=== PATIENT | female | born 1995 | race Caucasian/White ===

== ENCOUNTER 2023-05-30 02:29 | Observation (INO) ==
[2023-05-30] MEDS ORDERED: SODIUM CHLORIDE 0.9% 1,000 ML IV ONE (02:48)
[2023-05-30] MEDS ORDERED: ONDANSETRON INJ 2 MG/ML 2 ML VIAL IV STA (02:48)
[2023-05-30] MEDS ORDERED: SODIUM CHLORIDE 0.9% 500 ML IV STA (02:48)
[2023-05-30] MEDS ORDERED: fentaNYL citrate PF 100 MCG/2 ML VIAL IV STA (02:48)
[2023-05-30 03:00] LABS: POC Urine Bilirubin Negative (Negative); POC Urine Blood Negative (Negative); POC Urine Glucose Normal (Normal); POC Urine Ketones Negative (Negative); POC Urine Leukocytes Negative (Negative); POC Urine Nitrite Negative (Negative); POC Urine Protein 3+ (Negative); POC Urine Urobilinogen Normal (Normal); POC Urine pH 5 (4.5-7.5)
[2023-05-30 03:10] LABS: Appearance Urine Cloudy (Clear); Bacteria Urine Automated Negative (Negative); Bilirubin Urine Negative (Negative); Blood Urine Negative (Negative); Color Urine Orange; Epithelial Cell Urine Auto >30 /lpf (0-5); Glucose Urine UA Negative (Negative); Ketones Urine Negative (Negative); Leukocyte Esterase Urine 1+ (Negative); Nitrite Urine Negative (Negative); Protein Urine Negative (Negative); RBC Urine Automated 0-4 /hpf (0-4); Specific Gravity Urine 1.019 (1.000-1.030); Urobilinogen Urine Negative (Negative); pH Urine 7.5 (4.5-7.5)
--- NOTE | 2023-05-30 03:10 | Emergency Department Note ---
Impression & Plan Left ureteral calculus, Acute left flank pain, Hydronephrosis, left ED Provider Note HISTORY OF PRESENT ILLNESS: Patient is a 28-year-old female presenting with left flank pain. Patient reports pain started at 1800 on 05/29/2023. She reports she tried taking ibuprofen with little relief in her symptoms. She states that she has had kidney stones in the past. She reports that she has required surgical interventions for her kidney stones, with her last surgery being in 17- 18. She denies any dysuria or hematuria. Locates the pain in the left flank and states it radiates around into her left abdomen. Denies any abdominal surgical history. Denies any fevers. Reports nausea but no vomiting. ROS: as above PHYSICAL EXAM: Constitutional: Patient appears in no acute distress. HENT: Head: Normocephalic and atraumatic. Eyes: EOMI, PERRL Mouth/Throat: Mucous membranes moist. Neck: Trachea midline. Neck supple. Cardiovascular: RRR, No murmurs, rubs or gallops. Intact distal pulses. Pulmonary/Chest: No respiratory distress. Breath sounds clear and equal bilaterally. No wheezes or rales. Abdominal: Abdomen soft, no tenderness, rebound or guarding. Back: No midline spinal tenderness, no paraspinal tenderness, no CVA tenderness. Musculoskeletal: No edema, tenderness or deformity noted. Skin: Warm and dry. No rash, erythema, pallor or cyanosis Psychiatric: Appropriate mood and affect for situation. Neurological: Alert and keenly responsive. CN II-XII grossly intact, moving all extremities equally and fully. MDM: - Vitals signs showed hypertension and tachycardia. - History obtained via patient. Patient presents with left flank pain. Patient reports symptoms started at 1800 yesterday. She reports this feels like her prior kidney stones. She has required surgical intervention for kidney stones in the past. Denies any fevers. Denies any dysuria or hematuria. Reports taking Tylenol and Motrin with little relief in symptoms. Currently feels nauseous and having significant pain - Chronic conditions affecting care: recurrent kidney stones - Differential diagnoses include, but are not limited to: UTI; pyelonephritis; ureteral stone; colitis - Order placed for continuous cardiac monitoring. At this time, monitor showed rate of 91 bpm with normal sinus rhythm, per my interpretation. - External medical records reviewed. - Laboratory workup interpreted by myself showed leukocytosis (WBC 13.29) with left shift; hypokalemia (K 3.4); stable creatinine - UA negative for bacteria, but noted to have positive leukocyte Estrace and 10- 30 white blood cells. - CT abdomen/pelvis wo contrast showed an 8 mm proximal left ureteral stone with mild left hydronephrosis. - Patient given 1L NS, 50 mcg IV fentanyl and 4 mg IV zofran for symptomatic management on arrival to ER. On reassessment, the patient is still complaining of worsening pain. She was given an additional 500 cc NS and 30 mg IV toradol. - Given 2g IV rocephin. - Given patient's symptoms and continued pain, will admit for urology consultation and pain management. - Discussion was had with critical care transport nurse about patient's case and need for admission - Hospitalist consulted for admission - Patient admitted to [facility] for further evaluation and management. ASSESSMENT AND PLAN: Diagnosis: left flank pain; ureteral stone; left hydronephrosis Plan: admit Past Med/Surg History Social History Smoking Status: Never smoker Preferred Language: Urdu Feels Safe at Home: Yes Allergies Allergies Allergy/AdvReac Type Severity Reaction Status Date / Time No Known Allergies Allergy Verified 05/30/23 02:47 Home Meds Home Medications Medication Instructions Recorded Confirmed escitalopram oxalate 10 mg tablet 0 mg PO DAILY 05/30/23 05/30/23 (Lexapro) hydrochlorothiazide 12.5 mg tablet 12.5 mg PO DAILY 05/30/23 05/30/23 levonorgestrel 0.15 mg-ethinyl 1 tab PO DAILY 05/30/23 05/30/23 estradiol 30 mcg tablets,3 mos pack(91) omeprazole 20 mg capsule,delayed 20 mg PO DAILY 05/30/23 05/30/23 release potassium citrate 15 mEq (1,620 15 meq PO BID 05/30/23 05/30/23 mg) tablet,extended release Results & Data (ED) Vital Signs Vital Signs - 24 hr 05/30/23 02:34 05/30/23 03:43 Temperature 36.6 C 36.6 C Temperature Source Temporal Artery Scan Temporal Artery Scan Pulse Rate 101 H Pulse Rate [Right Apical] 91 H Respiratory Rate 18 18 Respiratory Effort / Characteristics Non-Labored Spontaneous Non-Labored Spontaneous Respiratory Depth Normal Normal Blood Pressure 142/83 H Blood Pressure [Right Arm] 136/84 Blood Pressure Mean 102 Blood Pressure Mean [Right Arm] 101 Pulse Oximetry 99 99 Oxygen Delivery Method Room Air Room Air Sepsis New/Unexplained Change in Mental Status N/A Sepsis Action Taken by Nursing No Action Required Laboratory Data 05/30/23 02:40 05/30/23 02:40 Lab Results 05/30/23 05/30/23 Range/Units 02:40 02:43 WBC 13.29 H (4.8-10.8) K/ul RBC 5.10 (4.20-5.40) M/uL Hgb 15.4 (12.0-16.0) g/dl Hct 44.6 (37.0-47.0) % MCV 87.5 (80.0-100.0) fL MCH 30.2 (25.0-34.0) pg MCHC 34.5 (32.0-36.0) g/dL RDW Std Deviation 37.8 (36.4-46.3) fL RDW Coeff of Gianni 11.7 (11.5-14.5) % Plt Count 251 (130-400) K/uL MPV 10.8 (9.4-12.4) fL Immature Gran % (Auto) 0.5 % Neut % (Auto) 74.9 % Lymph % (Auto) 15.0 % [place] % (Auto) 6.8 % Eos % (Auto) 2.4 % Baso % (Auto) 0.4 % Neut # (Auto) 9.96 H (1.40-6.50) K/uL Lymph # (Auto) 1.99 (1.20-3.40) K/uL [place] # (Auto) 0.91 H (0.11-0.59) K/uL Eos # (Auto) 0.32 (0.00-0.50) K/uL Baso # (Auto) 0.05 (0.00-0.20) K/uL Immature Gran # (Auto) 0.06 (0.01-0.20) K/uL Sodium 134 L (136-145) mmol/L Potassium 3.4 L (3.5-5.1) mmol/L Chloride 100 (98-107) mmol/L Carbon Dioxide 25 (21-32) mmol/L Anion Gap 9 (3-11) BUN 13 (6-23) mg/dl Creatinine 0.95 (0.6-1.2) mg/dl Est Cr Clr Drug Dosing 89.1 ml/min Est GFR ( Amer) 94.5 ml/min Est GFR (Non-Af Amer) 81.5 ml/min BUN/Creatinine Ratio 13.7 (10-20) Glucose 106 H (70-99(Fasting)) mg/dl Calcium 9.3 (8.6-10.3) mg/dl Total Bilirubin 0.4 (0.2-1.0) mg/dl AST 23 (13-39) U/L ALT 41 (7-52) U/L Alkaline Phosphatase 76 (34-104) U/L Total Protein 7.5 (6.0-8.3) gm/dl Albumin 4.4 (3.4-5.0) gm/dl Globulin 3.1 (2.5-4.0) gm/dl Albumin/Globulin Ratio 1.4 (0.9-2) Urine Color [place] Urine Appearance Cloudy A (Clear) Urine pH 7.5 (4.5-7.5) POC Urine pH 5 (4.5-7.5) Ur Specific [place] 1.019 (1.000-1.030) Urine Protein Negative (Negative) POC Urine Protein 3+ H (Negative) Urine Glucose (UA) Negative (Negative) POC Ur Glucose (UA) Normal (Normal) Urine Ketones Negative (Negative) POC Urine Ketones Negative (Negative) Urine Blood Negative (Negative) POC Urine Blood Negative (Negative) Urine Nitrite Negative (Negative) POC Urine Nitrite Negative (Negative) Urine Bilirubin Negative (Negative) POC Urine Bilirubin Negative (Negative) Urine Urobilinogen Negative (Negative) POC Urine Urobilinogen Normal (Normal) Ur Leukocyte Esterase 1+ H (Negative) POC U Leukocyte Esteras Negative (Negative) Urine WBC (Auto) 10-30 H (0-5) /hpf Urine RBC (Auto) 0-4 (0-4) /hpf U Hyaline Cast (Auto) 1-5 (0-5) /lpf U Epithel Cells (Auto) >30 H (0-5) /lpf Urine Bacteria (Auto) Negative (Negative) POC Ur Test NEG (NEG) Administered Medications Discontinued Medications Fentanyl Citrate (Fentanyl Citrate Pf 100 Mcg/2 Ml Vial) 50 mcg IV NOW STA Stop: 05/30/23 02:49 Last Admin: 05/30/23 02:59 Dose: 50 mcg Documented By: ANA Sodium Chloride (Nss) 1,000 mls @ 999 mls/hr IV .Q1H1M ONE Stop: 05/30/23 03:48 Last Infusion: 05/30/23 03:41 Dose: Infused Documented By: Admin: 05/30/23 02:59 Dose: 999 mls/hr Documented By: ANA Sodium Chloride (Nss) 500 mls @ 999 mls/hr IV .Q31M STA Stop: 05/30/23 03:18 Last Infusion: 05/30/23 04:18 Dose: Infused Documented By: Admin: 05/30/23 03:41 Dose: 999 mls/hr Documented By: ANA Ketorolac Tromethamine (Ketorolac 30 Mg/Ml Vial) 30 mg IV NOW ONE Stop: 05/30/23 04:03 Last Admin: 05/30/23 04:07 Dose: 30 mg Documented By: ANA Ondansetron HCl (Ondansetron Inj 2 Mg/Ml 2 Ml Vial) 4 mg IV NOW STA Stop: 05/30/23 02:49 Last Admin: 05/30/23 02:58 Dose: 4 mg Documented By: ANA Imaging Data Radiologist's Impression: Abdomen/Pelvis CT 05/30/23 02:49 Exam(s): CT ABDOMEN + PELVIS Without Contrast EXAM: CT Abdomen and Pelvis Without Intravenous Contrast CLINICAL HISTORY: Reason for exam: left flank pain. TECHNIQUE: Axial computed tomography images of the abdomen and pelvis without intravenous contrast. CTDI is 19.75 mGy and DLP is 941.52 mGy-cm. Automated exposure control was utilized for the study. A dose lowering technique was utilized adhering to the principles of ALARA. COMPARISON: No relevant prior studies available. FINDINGS: Lung bases: Unremarkable. No mass. No consolidation. ABDOMEN: Liver: Unremarkable. Gallbladder and bile ducts: Unremarkable. No calcified stones. No ductal dilation. Pancreas: Unremarkable. No ductal dilation. Spleen: Unremarkable. No splenomegaly. Adrenals: Unremarkable. No mass. Kidneys and ureters: Mild left hydronephrosis secondary to a 0.8 cm obstructing proximal left ureteral calculus. Multiple nonobstructing bilateral intrarenal calculi. 4 x 4.2 cm right upper pole renal hypodensity likely representing a cyst. Stomach and bowel: Unremarkable. No obstruction. No mucosal thickening. PELVIS: Appendix: No findings to suggest acute appendicitis. Bladder: Unremarkable. No stones. Reproductive: Unremarkable as visualized. ABDOMEN and PELVIS: Intraperitoneal space: Unremarkable. No free air. No significant fluid collection. Bones/joints: No acute fracture. No dislocation. Soft tissues: Unremarkable. Vasculature: Unremarkable. No abdominal aortic aneurysm. Lymph nodes: Unremarkable. No enlarged lymph nodes. IMPRESSION: Mild left hydronephrosis secondary to a 0.8 cm obstructing proximal left ureteral calculus. Electronically signed by: Mayur Mclean MD 05/30/23 04:25 AM Discharge Plan Visit Data Chief Complaint: Kidney Stone Stated Complaint: KIDNEY STONE ED Provider: Kelly Alvarado Discharge Problem: Left ureteral calculus, Acute left flank pain, Hydronephrosis, left Forms Stand Alone [facility]: [facility] Prescriptions Prescriptions: No Action omeprazole [Prilosec] 20 mg Capsule,Delayed Release(Dr/Ec) 20 mg PO DAILY escitalopram oxalate [Lexapro] 10 mg Tablet 0 mg PO DAILY Rx Instructions: PT UNSURE OF STRENGTH, UNABLE TO VERIFY levonorgestrel-ethinyl estrad [Seasonale (91)] 0.15 mg-30 mcg (91) Tablets,Dose Pack,3 Month 1 tab PO DAILY hydrochlorothiazide 12.5 mg Tablet 12.5 mg PO DAILY potassium citrate 15 mEq Tablet Extended Release 15 meq PO BID Referrals Referrals: PCP,NO [Physician] -
[2023-05-30 03:19] LABS: Basophils # (auto) 0.05 K/uL (0.00-0.20); Basophils % (auto) 0.4 %; Eosinophils # (auto) 0.32 K/uL (0.00-0.50); Eosinophils % (auto) 2.4 %; Hematocrit (blood only) 44.6 % (37.0-47.0); Hemoglobin 15.4 g/dl (12.0-16.0); Immature Granulocytes # (auto) 0.06 K/uL (0.01-0.20); Immature Granulocytes % (auto) 0.5 %; Lymphocytes # (auto) 1.99 K/uL (1.20-3.40); Mean Corpuscular Hemoglobin 30.2 pg (25.0-34.0); Mean Corpuscular Hgb Conc 34.5 g/dL (32.0-36.0); Mean Corpuscular Volume 87.5 fL (80.0-100.0); Mean Platelet Volume 10.8 fL (9.4-12.4); Monocytes # (auto) 0.91 K/uL (0.11-0.59); Monocytes % (auto) 6.8 %; Neutrophils # (auto) 9.96 K/uL (1.40-6.50); Neutrophils % (auto) 74.9 %; Platelet Count 251 K/uL (130-400); RDW Coefficient of Variation 11.7 % (11.5-14.5); RDW Standard Deviation 37.8 fL (36.4-46.3); White Blood Count 13.29 K/ul (4.8-10.8)
[2023-05-30 03:26] LABS: Albumin Globulin Ratio 1.4 (0.9-2); Albumin Level 4.4 gm/dl (3.4-5.0); BUN Creatinine Ratio 13.7 (10-20); Bilirubin,Total 0.4 mg/dl (0.2-1.0); Calcium 9.3 mg/dl (8.6-10.3); Creatinine Clr Calc Pharmacy 89.1 ml/min; Est GFR (African American) 94.5 ml/min; Est GFR (Non-African American) 81.5 ml/min; Globulin 3.1 gm/dl (2.5-4.0); Potassium 3.4 mmol/L (3.5-5.1); Total Protein 7.5 gm/dl (6.0-8.3)
[2023-05-30] MEDS ORDERED: KETOROLAC 30 MG/ML VIAL IV ONE (04:02)
--- NOTE | 2023-05-30 04:26 | CT Scan Report ---
Exam(s): CT ABDOMEN + PELVIS Without Contrast EXAM: CT Abdomen and Pelvis Without Intravenous Contrast CLINICAL HISTORY: Reason for exam: left flank pain. TECHNIQUE: Axial computed tomography images of the abdomen and pelvis without intravenous contrast. CTDI is 19.75 mGy and DLP is 941.52 mGy-cm. Automated exposure control was utilized for the study. A dose lowering technique was utilized adhering to the principles of ALARA. COMPARISON: No relevant prior studies available. FINDINGS: Lung bases: Unremarkable. No mass. No consolidation. ABDOMEN: Liver: Unremarkable. Gallbladder and bile ducts: Unremarkable. No calcified stones. No ductal dilation. Pancreas: Unremarkable. No ductal dilation. Spleen: Unremarkable. No splenomegaly. Adrenals: Unremarkable. No mass. Kidneys and ureters: Mild left hydronephrosis secondary to a 0.8 cm obstructing proximal left ureteral calculus. Multiple nonobstructing bilateral intrarenal calculi. 4 x 4.2 cm right upper pole renal hypodensity likely representing a cyst. Stomach and bowel: Unremarkable. No obstruction. No mucosal thickening. PELVIS: Appendix: No findings to suggest acute appendicitis. Bladder: Unremarkable. No stones. Reproductive: Unremarkable as visualized. ABDOMEN and PELVIS: Intraperitoneal space: Unremarkable. No free air. No significant fluid collection. Bones/joints: No acute fracture. No dislocation. Soft tissues: Unremarkable. Vasculature: Unremarkable. No abdominal aortic aneurysm. Lymph nodes: Unremarkable. No enlarged lymph nodes. IMPRESSION: Mild left hydronephrosis secondary to a 0.8 cm obstructing proximal left ureteral calculus. Electronically signed by: Mayur Mclean MD 05/30/23 04:25 AM
[2023-05-30] MEDS ORDERED: cefTRIAXone SODIUM 2,000 MG/50 ML BAG IV STA (04:27)
--- NOTE | 2023-05-30 05:10 | History & Physical Report ---
Date of Service May 30, 2023 Assessment & Plan (1) Left ureteral calculus: Plan: Patient comfortable at present. UA without bacteria. -Admit to medical -Consult Urology - assistance appreciated -Keep NPO -Urine strainer -IVF -Pain control and antiemetics History of Present Illness Chief Complaint: left flank pain Primary Care Provider: Haresh Bermudez Kimberley Dahl is a 28yo female with HTN, GERD and recurrent renal stones presenting with left flank pain that began tonight at 18:00. Pain radiating into the groin. Associated nausea and vomiting. Patient was seen in the past by Urology in [place]. She has had 3 urological procedures in the past and has passed several stones on her own as well. Allergies Allergy/AdvReac Type Severity Reaction Status Date / Time No Known Allergies Allergy Verified 05/30/23 02:47 Home Medications Medication Instructions Recorded Confirmed Type escitalopram oxalate 10 mg tablet 0 mg PO DAILY 05/30/23 05/30/23 History (Lexapro) hydrochlorothiazide 12.5 mg tablet 12.5 mg PO DAILY 05/30/23 05/30/23 History levonorgestrel 0.15 mg-ethinyl 1 tab PO DAILY 05/30/23 05/30/23 History estradiol 30 mcg tablets,3 mos pack(91) omeprazole 20 mg capsule,delayed 20 mg PO DAILY 05/30/23 05/30/23 History release potassium citrate 15 mEq (1,620 15 meq PO BID 05/30/23 05/30/23 History mg) tablet,extended release Past Med/Surg History Social History Smoking Status: Never smoker Hx Alcohol Use: No Hx Substance Use: No Preferred Language: Yoruba Communication Ability: Effective Size Marker Required: No Beliefs That Will Affect Care: None Current Living Situation: Significant Other Other Information That Helps Us Care for You: No Feels Safe at Home: Yes Safety Concerns: Feels Safe At This Time Assistive Devices: Glasses Review of Systems Review of Systems: All systems reviewed & are unremarkable except as noted in HPI & below Physical Exam Physical Exam: General: patient resting comfortably, NAD, non-toxic in appearance, AA&O x 4 Skin: warm, dry, intact, no rashes or lesions HEENT: NC/AT, PERRL, EOMI, anicteric sclera, conjunctiva without injection, external ear normal to inspection and nontender, nares patent, moist mucus membranes, dentition intact, no oropharyngeal lesions, neck supple, trachea midline, no LAD, no thyromegaly, no JVD Heart: +S1/S2, regular, no m/r/g Lungs: equal air entry bilaterally, no rales/rhonchi/wheezes Abd: +BS, soft, NT/ND, no masses/organomegaly/ascites, LEFT CVA Tenderness Ext: warm, 2+ pulses in UE/LE bilaterally, no clubbing/cyanosis or edema Neuro: nonfocal, patient AA&O x 4, speech intact, no facial droop, moving all extremities on command with equal strength 5/5 Results & Data Results & Data Vital Signs (Past 12 Hours) Vital Signs Temp Pulse Pulse Resp BP BP Pulse Ox 05/30/23 05:05 05/30/23 05:03 36.8 C 88 15 137/84 98 05/30/23 03:43 36.6 C 91 H 18 136/84 99 05/30/23 02:34 36.6 C 101 H 18 142/83 H 99 O2 Del Method 05/30/23 05:05 Room Air 05/30/23 05:03 Room Air 05/30/23 03:43 Room Air 05/30/23 02:34 Room Air Laboratory Results Laboratory Results WBC 13.29 K/ul (4.8-10.8) H 05/30/23 02:40 RBC 5.10 M/uL (4.20-5.40) 05/30/23 02:40 Hgb 15.4 g/dl (12.0-16.0) 05/30/23 02:40 Hct 44.6 % (37.0-47.0) 05/30/23 02:40 MCV 87.5 fL (80.0-100.0) 05/30/23 02:40 MCH 30.2 pg (25.0-34.0) 05/30/23 02:40 MCHC 34.5 g/dL (32.0-36.0) 05/30/23 02:40 RDW Std Deviation 37.8 fL (36.4-46.3) 05/30/23 02:40 RDW Coeff of Gianni 11.7 % (11.5-14.5) 05/30/23 02:40 Plt Count 251 K/uL (130-400) 05/30/23 02:40 MPV 10.8 fL (9.4-12.4) 05/30/23 02:40 Immature Gran % (Auto) 0.5 % 05/30/23 02:40 Neut % (Auto) 74.9 % 05/30/23 02:40 Lymph % (Auto) 15.0 % 05/30/23 02:40 [place] % (Auto) 6.8 % 05/30/23 02:40 Eos % (Auto) 2.4 % 05/30/23 02:40 Baso % (Auto) 0.4 % 05/30/23 02:40 Neut # (Auto) 9.96 K/uL (1.40-6.50) H 05/30/23 02:40 Lymph # (Auto) 1.99 K/uL (1.20-3.40) 05/30/23 02:40 [place] # (Auto) 0.91 K/uL (0.11-0.59) H 05/30/23 02:40 Eos # (Auto) 0.32 K/uL (0.00-0.50) 05/30/23 02:40 Baso # (Auto) 0.05 K/uL (0.00-0.20) 05/30/23 02:40 Immature Gran # (Auto) 0.06 K/uL (0.01-0.20) 05/30/23 02:40 Sodium 134 mmol/L (136-145) L 05/30/23 02:40 Potassium 3.4 mmol/L (3.5-5.1) L 05/30/23 02:40 Chloride 100 mmol/L (98-107) 05/30/23 02:40 Carbon Dioxide 25 mmol/L (21-32) 05/30/23 02:40 Anion Gap 9 (3-11) 05/30/23 02:40 BUN 13 mg/dl (6-23) 05/30/23 02:40 Creatinine 0.95 mg/dl (0.6-1.2) 05/30/23 02:40 Est Cr Clr Drug Dosing 89.1 ml/min 05/30/23 02:40 Est GFR ( Amer) 94.5 ml/min 05/30/23 02:40 Est GFR (Non-Af Amer) 81.5 ml/min 05/30/23 02:40 BUN/Creatinine Ratio 13.7 (10-20) 05/30/23 02:40 Glucose 106 mg/dl (70-99(Fasting)) H 05/30/23 02:40 Calcium 9.3 mg/dl (8.6-10.3) 05/30/23 02:40 Total Bilirubin 0.4 mg/dl (0.2-1.0) 05/30/23 02:40 AST 23 U/L (13-39) 05/30/23 02:40 ALT 41 U/L (7-52) 05/30/23 02:40 Alkaline Phosphatase 76 U/L (34-104) 05/30/23 02:40 Total Protein 7.5 gm/dl (6.0-8.3) 05/30/23 02:40 Albumin 4.4 gm/dl (3.4-5.0) 05/30/23 02:40 Globulin 3.1 gm/dl (2.5-4.0) 05/30/23 02:40 Albumin/Globulin Ratio 1.4 (0.9-2) 05/30/23 02:40 Urine Color [place] 05/30/23 02:43 Urine Appearance Cloudy (Clear) A 05/30/23 02:43 Urine pH 7.5 (4.5-7.5) 05/30/23 02:43 POC Urine pH 5 (4.5-7.5) 05/30/23 02:43 Ur Specific [place] 1.019 (1.000-1.030) 05/30/23 02:43 Urine Protein Negative (Negative) 05/30/23 02:43 POC Urine Protein 3+ (Negative) H 05/30/23 02:43 Urine Glucose (UA) Negative (Negative) 05/30/23 02:43 POC Ur Glucose (UA) Normal (Normal) 05/30/23 02:43 Urine Ketones Negative (Negative) 05/30/23 02:43 POC Urine Ketones Negative (Negative) 05/30/23 02:43 Urine Blood Negative (Negative) 05/30/23 02:43 POC Urine Blood Negative (Negative) 05/30/23 02:43 Urine Nitrite Negative (Negative) 05/30/23 02:43 POC Urine Nitrite Negative (Negative) 05/30/23 02:43 Urine Bilirubin Negative (Negative) 05/30/23 02:43 POC Urine Bilirubin Negative (Negative) 05/30/23 02:43 Urine Urobilinogen Negative (Negative) 12 02:43 POC Urine Urobilinogen Normal (Normal) 05/30/23 02:43 Ur Leukocyte Esterase 1+ (Negative) H 05/30/23 02:43 POC U Leukocyte Esteras Negative (Negative) 05/30/23 02:43 Urine WBC (Auto) 10-30 /hpf (0-5) H 12 02:43 Urine RBC (Auto) 0-4 /hpf (0-4) 05/30/23 02:43 U Hyaline Cast (Auto) 1-5 /lpf (0-5) 05/30/23 02:43 U Epithel Cells (Auto) >30 /lpf (0-5) H 05/30/23 02:43 Urine Bacteria (Auto) Negative (Negative) 05/30/23 02:43 POC Ur Test NEG (NEG) 05/30/23 02:43 Impressions Abdomen/Pelvis CT 05/30/23 02:49 Exam(s): CT ABDOMEN + PELVIS Without Contrast EXAM: CT Abdomen and Pelvis Without Intravenous Contrast CLINICAL HISTORY: Reason for exam: left flank pain. TECHNIQUE: Axial computed tomography images of the abdomen and pelvis without intravenous contrast. CTDI is 19.75 mGy and DLP is 941.52 mGy-cm. Automated exposure control was utilized for the study. A dose lowering technique was utilized adhering to the principles of ALARA. COMPARISON: No relevant prior studies available. FINDINGS: Lung bases: Unremarkable. No mass. No consolidation. ABDOMEN: Liver: Unremarkable. Gallbladder and bile ducts: Unremarkable. No calcified stones. No ductal dilation. Pancreas: Unremarkable. No ductal dilation. Spleen: Unremarkable. No splenomegaly. Adrenals: Unremarkable. No mass. Kidneys and ureters: Mild left hydronephrosis secondary to a 0.8 cm obstructing proximal left ureteral calculus. Multiple nonobstructing bilateral intrarenal calculi. 4 x 4.2 cm right upper pole renal hypodensity likely representing a cyst. Stomach and bowel: Unremarkable. No obstruction. No mucosal thickening. PELVIS: Appendix: No findings to suggest acute appendicitis. Bladder: Unremarkable. No stones. Reproductive: Unremarkable as visualized. ABDOMEN and PELVIS: Intraperitoneal space: Unremarkable. No free air. No significant fluid collection. Bones/joints: No acute fracture. No dislocation. Soft tissues: Unremarkable. Vasculature: Unremarkable. No abdominal aortic aneurysm. Lymph nodes: Unremarkable. No enlarged lymph nodes. IMPRESSION: Mild left hydronephrosis secondary to a 0.8 cm obstructing proximal left ureteral calculus. Electronically signed by: Mayur Mclean MD 05/30/23 04:25 AM PG Care Time/CCT Total # of Minutes Spent Total Time Spent with Patient: Total time spent is greater than 50% in coordination of care (as documented) at patient's floor/unit and/or counseling patient: Coding Level of Care Code 23335 INT INP/OBS CARE 2/55MIN Diagnoses Left ureteral calculus N20.1
[2023-05-30] MEDS ORDERED: ONDANSETRON INJ 2 MG/ML 2 ML VIAL IV PRN (07:54)
[2023-05-30] MEDS ORDERED: POLYETHYLENE (MIRALAX) 17 GM PACK PO PRN (07:54)
[2023-05-30] MEDS ORDERED: HYDROmorphone INJ 0.5 MG/0.5 ML SYR IV PRN ×2 (07:54)
[2023-05-30] MEDS ORDERED: NALOXONE HCL 0.4 MG/1 ML VIAL/CARP IV PRN (07:54)
[2023-05-30] MEDS ORDERED: POTASSIUM CHLORIDE CRTAB 20 MEQ TABCR PO STA (08:02)
[2023-05-30] MEDS: LACTATED RINGER'S 1,000 ML IV SCH ×2 (08:38→14:20)
[2023-05-30] MEDS ORDERED: hydroCHLOROthiazide 25 MG TAB PO SCH (09:00)
[2023-05-30] MEDS ORDERED: ESCITALOPRAM OXALATE 10 MG TAB PO SCH (09:30)
[2023-05-30] MEDS ORDERED: KETOROLAC 30 MG/ML VIAL IV PRN (09:44)
[2023-05-30] MEDS ORDERED: TAMSULOSIN HCL 0.4 MG CAP PO SCH (09:45)
--- NOTE | 2023-05-30 09:45 | Communication Note ---
Date of Service: May 30, 2023 Admitted this AM by Dr. Swenson, follow-up note 28 y/o hx nephrolithiasis and several past urological procedures, on HCTZ at home. Presented with L flank pain, 0.8 cm stone prox L ureter with mild hydronephrosis -had dose of CTX by ED -IV fluids - increase LR to 200 mL/h -flomax ordered -pain control with IV hydromorphone, ketorolac -dose of oral K given for mild hypokalemia -urology consulted
--- NOTE | 2023-05-30 10:45 | Urology Consultation ---
Date of Consultation May 30, 2023 Assessment & Plan (1) Hydronephrosis, left: (2) Left ureteral calculus: (3) Acute left flank pain: 28 yo F admitted for acute left flank pain secondary to an obstructing left proximal ureteral stone. Patient afebrile, hemodynamically stable Labs reviewedcreatinine 0.95, WBC 13.29, hemoglobin 15.4 Urinalysis was not suggestive of infection, urine culture pending CTAP reviewed and discussedmild left hydronephrosis secondary to an 8 mm obstructing left proximal ureteral stone; bilateral nephrolithiasis Discussed options for stone management including left ureteral stent placement acutely. Discussed need for stone treatment/removal at a later date. Ureteral stents were discussed in detail. Alternatively, we discussed outpatient surgical options including ESWL versus ureteroscopy, laser lithotripsy and stent placement if pain is controlled and she can be discharged to home. She poorly tolerated stent in the past and would like to avoid stent for prolonged period. She prefers to f/u with our service to set up outpatient stone treatment. No surgical intervention planned todayokay to resume diet. Recommend discharge to home with tamsulosin and prn analgesia when medically stable. Will arrange outpatient follow-up with our service to discuss definitive stone management. will sign off. History of Present Illness Attending Physician: Miladis Green MD History of Present Illness This is a 28-year-old female with past medical history of recurrent nephrolithiasis who presented to the emergency department today with left flank pain and nausea. On arrival, she was afebrile and hemodynamically stable. Lab work showed leukocytosis of 13.29, hemoglobin 15.4, creatinine 0.95, sodium 134, potassium 3.4. Urinalysis showed 3+ protein, 1+ leukocyte esterase, 10-30 WBC, >30 epithelial cells, negative for bacteria. Urine negative. CT A/P without contrast showed mild left hydronephrosis secondary to an 8 mm obstructing left proximal ureteral stone; bilateral renal calculi. ED course: IV fluids, fentanyl, Zofran, Toradol, and IV Rocephin. She was admitted to the hospital medicine service. Urology is consulted for left ureteral stone. Patient seen and examined at bedside this morning. She is awake and sitting up in bed, no apparent distress. She is currently comfortable. She reports left f lank pain has improved since arrival, rates pain at 3 out of 10. Denies nausea, vomiting, fever or chills at present. She is voiding without difficulty. Denies dysuria or hematuria. She is currently NPO. She reports prior hx of stones. Previously followed with a urologist in [place]. Does not currently have a urologist. Continues to follow with a licensed practical nurse clinic nurse. On potassiums citrate. Multiple surgical interventions in the past. She has poorly tolerated stent/stent removal in the past. She has also passed stone spontaneously. Allergies Allergy/AdvReac Type Severity Reaction Status Date / Time No Known Allergies Allergy Verified 05/30/23 02:47 Home Medications Medication Instructions Recorded Confirmed Type escitalopram oxalate 10 mg tablet 10 mg PO DAILY 05/30/23 05/30/23 History (Lexapro) hydrochlorothiazide 12.5 mg tablet 12.5 mg PO DAILY 05/30/23 05/30/23 History levonorgestrel 0.15 mg-ethinyl 1 tab PO DAILY 05/30/23 05/30/23 History estradiol 30 mcg tablets,3 mos pack(91) omeprazole 20 mg capsule,delayed 20 mg PO DAILY 05/30/23 05/30/23 History release potassium citrate 15 mEq (1,620 15 meq PO BID 05/30/23 05/30/23 History mg) tablet,extended release Patient History Social History Smoking Status: Never smoker Hx Alcohol Use: No Hx Substance Use: No Preferred Language: Stateless Communication Ability: Effective Track Leader Required: No Beliefs That Will Affect Care: None Current Living Situation: Significant Other Feels Safe at Home: Yes Assistive Devices: Glasses Review of Systems Review of Systems: All systems reviewed & are unremarkable except as noted in HPI & below Physical Exam Physical Exam: General: well-appearing, no acute distress HEENT: Normocephalic, mucous membranes moist Pulmonary: Nonlabored respirations Abdomen: Nondistended Extremities: Moves all 4 spontaneously Neuro: No gross deficits Psych: alert and oriented, normal mood Skin: Warm, dry, no rashes noted Results & Data Vital Signs (Past 12 Hours) Vital Signs Temp Pulse Pulse Resp BP BP Pulse Ox 05/30/23 07:52 36.9 C 67 16 132/82 100 05/30/23 07:33 05/30/23 07:29 74 20 130/76 97 05/30/23 05:05 05/30/23 05:03 36.8 C 88 15 137/84 98 05/30/23 03:43 36.6 C 91 H 18 136/84 99 05/30/23 02:34 36.6 C 101 H 18 142/83 H 99 O2 Del Method 05/30/23 07:52 Room Air 05/30/23 07:33 Room Air 05/30/23 07:29 Room Air 05/30/23 05:05 Room Air 05/30/23 05:03 Room Air 05/30/23 03:43 Room Air 05/30/23 02:34 Room Air PG Care Time/CCT Total # of Minutes Spent Total Time Spent with Patient: Total time spent is greater than 50% in coordination of care (as documented) at patient's floor/unit and/or counseling patient: Coding Level of Care Code 14158 IN/OBS CONSULT LVL 4,60M Diagnoses Hydronephrosis, left N13.30 Left ureteral calculus N20.1 Acute left flank pain R10.9
[2023-05-30] MEDS ORDERED: HYDROcodone/ACETAMINOPHEN 10/325 TAB PO PRN (15:31)
--- NOTE | 2023-05-30 16:54 | Discharge Summary ---
Date of Service May 30, 2023 Admission HPI Per Admitting Provider Kimberley Dahl is a 28yo female with HTN, GERD and recurrent renal stones presenting with left flank pain that began tonight at 18:00. Pain radiating into the groin. Associated nausea and vomiting. Patient was seen in the past by Urology in [place]. She has had 3 urological procedures in the past and has passed several stones on her own as well. Principal Diagnosis left ureteral calculus, recurrent nephrolithiasis Discharge Exam Young well-appearing woman, appears comfortable. Respirations nonlabored Discharge Data Allergies Allergy/AdvReac Type Severity Reaction Status Date / Time No Known Allergies Allergy Verified 05/30/23 02:47 Consultations 05/30/23 04:54 ED Decision to Admit Stat 05/30/23 07:54 Consult Urology Routine Ordered Studies 05/30/23 02:49 CT Abd and Pelvis [CT abd pelvis wo con] Stat Abdomen/Pelvis CT 05/30/23 02:49 Exam(s): CT ABDOMEN + PELVIS Without Contrast EXAM: CT Abdomen and Pelvis Without Intravenous Contrast CLINICAL HISTORY: Reason for exam: left flank pain. TECHNIQUE: Axial computed tomography images of the abdomen and pelvis without intravenous contrast. CTDI is 19.75 mGy and DLP is 941.52 mGy-cm. Automated exposure control was utilized for the study. A dose lowering technique was utilized adhering to the principles of ALARA. COMPARISON: No relevant prior studies available. FINDINGS: Lung bases: Unremarkable. No mass. No consolidation. ABDOMEN: Liver: Unremarkable. Gallbladder and bile ducts: Unremarkable. No calcified stones. No ductal dilation. Pancreas: Unremarkable. No ductal dilation. Spleen: Unremarkable. No splenomegaly. Adrenals: Unremarkable. No mass. Kidneys and ureters: Mild left hydronephrosis secondary to a 0.8 cm obstructing proximal left ureteral calculus. Multiple nonobstructing bilateral intrarenal calculi. 4 x 4.2 cm right upper pole renal hypodensity likely representing a cyst. Stomach and bowel: Unremarkable. No obstruction. No mucosal thickening. PELVIS: Appendix: No findings to suggest acute appendicitis. Bladder: Unremarkable. No stones. Reproductive: Unremarkable as visualized. ABDOMEN and PELVIS: Intraperitoneal space: Unremarkable. No free air. No significant fluid collection. Bones/joints: No acute fracture. No dislocation. Soft tissues: Unremarkable. Vasculature: Unremarkable. No abdominal aortic aneurysm. Lymph nodes: Unremarkable. No enlarged lymph nodes. IMPRESSION: Mild left hydronephrosis secondary to a 0.8 cm obstructing proximal left ureteral calculus. Electronically signed by: Mayur Mclean MD 05/30/23 04:25 AM 05/30/23 02:40 05/30/23 02:40 Hospital Course (1) Left ureteral calculus: 0.8 cm stone left proximal ureter with mild hydronephrosis UA without bacteria, mild inflammation. Renal function normal. Urology consulted -Pain control and antiemetics, IV fluids, tamsulosin started She disussed management with urologist and wishes to avoid stent placement which has been problematic in the past. Urology is scheduling outpatient appointment for definitive stone treatment, recommended discharge home when symptoms controlled. Symptomatically improved this afternoon and wished to discharge home. "You were treated for left sided kidney stone, the stone is currently in the top (beginning) of the left ureter It does not look like there is infection and the urologist did not recommend antibiotics right now -you can take acetaminophen and NSAID (either naproxen or ibuprofen) as directed to help with pain -I prescribed some oxycodone to add if these are ineffective as well as ondansetron for nausea -taking pain medicine like oxycodone along WITH acetaminophen or naproxen/ibuprofen can be more helpful than one type alone -take miralax daily as directed and senna 1-2 tabs a day if needed to prevent constipation -we prescribed tamsulosin (flomax) to help relax the ureter, it can help with stone passage -drink plenty of fluids -don't drive while taking opioid pain medication like oxycodone or nausea medicine -oxycodone carries the potential for addiction and overdose - use as sparingly as possible, for the shortest duration possible -schedule follow up with urology as soon as possible for definitive stone treatment" Takes HCTZ for hypertension - instructed to hold if not eating/drinking well Continue SSRIs for depression Total Time Total Time Spent Total Time Spent (In Minutes): I spent 35 minutes coordinating care for discharge Discharge Plan Discharge Items Patient Disposition: Home - Self-Care Reason For Visit: L OBSTRUCTING RENAL STONE Discharge Diagnosis: left sided ureteral stone Condition on Discharge: Good Activity: Resume your previous activity Non-emergency contact: Urologist Call non-emergency contact if: you have any medication questions, your symptoms worsen and you have a fever Follow-up/Referrals: Mathew Nam, [Physician] - Haresh Bermudez M.D. [Primary Care Provider] - Diet: Regular Addtl Attending Provider Instructions: You were treated for left sided kidney stone, the stone is currently in the top (beginning) of the left ureter It does not look like there is infection and the urologist did not recommend antibiotics right now -you can take acetaminophen and NSAID (either naproxen or ibuprofen) as directed to help with pain -I prescribed some oxycodone to add if these are ineffective as well as ondansetron for nausea -taking pain medicine like oxycodone along WITH acetaminophen or naproxen/ibuprofen can be more helpful than one type alone -take miralax daily as directed and senna 1-2 tabs a day if needed to prevent constipation -we prescribed tamsulosin (flomax) to help relax the ureter, it can help with stone passage -drink plenty of fluids -don't drive while taking opioid pain medication like oxycodone or nausea medicine -oxycodone carries the potential for addiction and overdose - use as sparingly as possible, for the shortest duration possible -schedule follow up with urology as soon as possible for definitive stone treatment Miladis Green MD Pending Studies at Discharge: Yes Studies:: urine culture Stand-Alone Forms: [facility], Pain - Opioid Pain Management, Smoking Cessation Medications and DC Order Prescriptions: New tamsulosin 0.4 mg Capsule 0.4 mg PO QAM Qty: 14 0RF oxycodone 5 mg tablet 5 - 10 mg PO Q4H PRN (Reason: pain (scale score 4-6)) Qty: 14 0RF ondansetron 4 mg tablet,disintegrating 4 mg translingual Q6H PRN (Reason: nausea and vomiting) Qty: 14 0RF polyethylene glycol 3350 [Miralax] 17 gram Powder In Packet 17 g PO DAILY PRN (Reason: constipation) Qty: 0 0RF Rx Instructions: buy over the counter Continued omeprazole [Prilosec] 20 mg Capsule,Delayed Release(Dr/Ec) 20 mg PO DAILY escitalopram oxalate [Lexapro] 10 mg Tablet 10 mg PO DAILY levonorgestrel-ethinyl estrad [Seasonale (91)] 0.15 mg-30 mcg (91) Tablets,Dose Pack,3 Month 1 tab PO DAILY hydrochlorothiazide 12.5 mg Tablet 12.5 mg PO DAILY potassium citrate 15 mEq Tablet Extended Release 15 meq PO BID Discharge Orders: Discharge Order (Routine); Ordered 05/30/23 Ordered By: Miladis Green Admission Data Admit Date/Time: 05/30/23 05:09 Attending Provider: Miladis Green Admit Provider: Adelina Swenson Primary Care Provider: Haresh Bermudez Other Providers: Adelina Swenson; Amauri Welch Other Interventions: Discharge Summary Assessment (RN) Last Done: 05/30/23 16:16 Coding Level of Care Code INP/OBS EV SAME DAY LV 2,70MIN Diagnoses Left ureteral calculus N20.1
== END 2023-05-30 17:30 | disposition home or self-care (01) ==
LOC: ED 02:29 → INTOOBSV 05:09 → EDINP 05:09 → SUATTDRO 05:09 → EDINP 07:33 → 3E 07:51